=== PATIENT | male | born 1995 | race Hispanic/Latino ===

== ENCOUNTER 2019-03-17 00:30 | Emergency (ER) | payer OTHER ==
[2019-03-17] MEDS ORDERED: PHENAZOPYRIDINE HCL 200 MG TABLET ONE (00:46)
[2019-03-17 00:49] LABS: BILIRUBIN,URINE NEGATIVE (NEGATIVE); COLOR,URINE YELLOW (YELLOW); GLUCOSE, URINE (UA) NEGATIVE (NEGATIVE); KETONES,URINE NEGATIVE (NEGATIVE); LEUKOCYTE ESTERASE ,URINE LARGE (NEGATIVE); NITRATE,URINE NEGATIVE (NEGATIVE); OCCULT BLOOD,URINE LARGE (NEGATIVE); PROTEIN,URINE 30 mg/dL (NEGATIVE); UROBILINOGEN,URINE 0.2 mg/dL (0.2-1.0)
[2019-03-17 00:52] LABS: APPEARANCE,URINE CLOUDY (CLEAR)
[2019-03-17] MEDS ORDERED: LIDOCAINE HCL-MPF 1% 2ML VIAL ONE (00:55)
[2019-03-17] MEDS ORDERED: CEFTRIAXONE SODIUM 1 GM ONE (00:55)
[2019-03-17 01:04] LABS: BACTERIA,URINE Moderate /HPF (None Seen); SQUAMOUS EPITHELIAL CELL,UR 0-2 /HPF (0-2); WBC,URINE >100 /HPF (0-1)
== END 2019-03-17 01:47 | disposition home or self-care (01) ==
LOC: EDH 00:30
DX: N30.00 Acute cystitis without hematuria (principal); Z72.0 Tobacco use
CPT/HCPCS: 81001; 87486; 87797; 96372; 99284; J0696; J3490